=== PATIENT | female | born 1985 | race African-American/Black ===

== ENCOUNTER 2019-10-07 03:26 | Emergency (ER) | payer MEDICAID ==
[~2019-10-07] VITALS: Ht 160 cm; Wt 63.5 kg
[2019-10-07] MEDS ORDERED: KEFLEX500 M1 PO (05:02)
[2019-10-07] MEDS ORDERED: NORCO 5-325 TA1 EACH PO (05:06)
== END 2019-10-07 06:31 | disposition home or self-care (01) ==
LOC: ED 03:26
DX: S62.637B Displaced fracture of distal phalanx of left little finger, initial encounter for open fracture (principal); W23.0XXA Caught, crushed, jammed, or pinched between moving objects, initial encounter; Y93.89 Activity, other specified; Y92.89 Other specified places as the place of occurrence of the external cause; Y99.8 Other external cause status